=== PATIENT | male | born 1965 | race Caucasian/White ===

== ENCOUNTER 2022-01-27 14:36 | Emergency (ER) | payer OTHER, SELFPAY ==
[2022-01-27 14:37] VITALS: BP 148/91; PULSE 77; TEMP 36.7; O2SAT 96; BMI 30.2
--- NOTE | 2022-01-27 14:44 | ECG_ITS ---
[facility] Test Date: 2022-01-27 Pat Name: José Miguel Nguyen Department: Room: Gender: Male Specification Manager: : 1965 Requested By: Dany Portillo Order Number: [id number] Santiago MD: Paola Parsons M.D. Measurements Intervals [place] Rate: 75 P: DC: QRS: -2 QRSD: 95 T: 48 QT: 363 QTc: 406 Interpretive Statements Possible sinus rhythm with a rate of 75 bpm. Heavy baseline artifact. Some nonspecific T changes. Defective EKG Need to repeat Electronically Signed On 01-27-2022 23:13:20 [employer] SALESPERSON by Paola Parsons M.D. [id number]
[2022-01-27 15:11] LABS: Basophils % 0.7 %; Eosinophils # 0.1 10^3/uL (0.0-0.8); Eosinophils % 2.2 %; Hematocrit 43.1 % (42.0-52.0); Hemoglobin 14.3 g/dL (11.7-16.6); Lymphocytes # 0.5 10^3/uL (0.8-4.8); Lymphocytes % 9.7 %; Mean Corpuscular HGB Conc 33.2 g/dL (30.0-36.0); Mean Corpuscular Hemoglobin 26.7 pg (28.0-34.0); Mean Corpuscular Volume 80.6 fl (80-94); Mean Platelet Volume 10.7 fL (7.4-10.4); Monocytes # 0.6 10^3/uL (0.2-0.9); Monocytes % 10.3 %; Neutrophils # 4.11 10^3/uL (1.8-7.7); Neutrophils % 76.7 %; Nucleated Red Blood Cells % 0 %; Platelet Count 62 10^3/cmm (130-400); Red Blood Count 5.35 10^6/uL (4.1-5.3); Red Cell Distribution Width 18.9 % (12.1-15.1); White Blood Count 5.4 10^3/uL (4.0-10.0)
--- NOTE | 2022-01-27 15:18 | ED_ITS ---
HPI - Nausea/Vomiting/Diarrhea General: Chief complaint: Nausea/Vomiting/Diarrhea Stated complaint: N/V X 5 DAYS Time Seen by Provider: 01/27/22 14:44 Source: patient Mode of arrival: EMS Limitations: no limitations History of Present Illness: 48-year-old male who presents emergency room highly intoxicated. He states he has been having nausea vomiting for the last 5 days been drinking as much as I can . Patient states he has a history of bipolar disorder and anxiety. He repeatedly denies any suicidal homicidal ideation to me. He denies hematochezia melena hematemesis or coffee-ground emesis. He has noticed some streaks of blood in the vomit as well as what he describes as like black tar. He is also noticed dark stool. He is not had any hematochezia. MD elicited complaint: nausea and vomiting Pertinent past history: other (Chronic alcohol abuse) Onset (ago): day(s) (5) Description of vomiting: watery and bilious Associated nausea: Yes Location of pain: Epigastric Radiation: epigastric Pain consistency: intermittent Severity: mild Quality: cramping Exacerbating factors: none Relieving factors: none Context: alcohol abuse Associated symtoms: Reports anxiety, fatigue, anorexia, malaise, nausea, syncope and weakness; Denies altered mental status, bloating, change in vision, cough, diaphoresis, decreased urine output, dizziness, dysuria, epistaxis, fecal incontinence, fevers/chills, headache(s), myalgias, numbness, palpitations, rash, short of breath, tenesmus or tinnitus Review of Systems Const: Reports: fatigue and malaise; Denies: diaphoresis Eyes: Denies: change in vision ENMT: Denies: tinnitus or epistaxis Card: Reports: syncope; Denies: palpitations Resp: Denies: dyspnea, productive cough or non-productive cough GI: Reports: abdominal pain, nausea, vomiting and coffee ground emesis (??); Denies: bloating or fecal incontinence : Denies: flank pain, difficulty urinating or dysuria Skin/Breast: Denies: rash or pruritus Neuro: Denies: headache(s) or dizziness Psych: Reports: anxiety PFSH ED PFSH: Medical History (Updated 02/01/22 @ 12:43 by Dany Tolentino DO) Alcohol abuse Anxiety Depression Social History (Updated 02/01/22 @ 12:43 by Dany Tolentino DO) Smoking and tobacco status: current every day smoker Alcohol intake: current Alcohol intake frequency: 3 or more drinks per day Alcohol type: hard liquor Alcohol use comment: Up to 1/5 of hard liquor daily Physical Exam Const: EXAM LIMITATIONS: no altered mental status GENERAL APPEARANCE: cooperative and comfortable ORIENTATION/CONSCIOUSNESS: Yes awake, Yes oriented to person, Yes oriented to place and Yes oriented to time HENMT: COMMON NORMALS: normocephalic, atraumatic and hearing grossly normal bilaterally HEAD & SCALP: normocephalic and atraumatic Neck/C-Spine: COMMON NORMALS: full ROM, no lymphadenopathy, supple and no JVD Resp: COMMON NORMALS: normal respiratory effort, No retractions, No use of accessory muscles and clear to auscultation bilaterally AUSCULTATION: clear to auscultation bilaterally Cardio: COMMON NORMALS: no JVD, regular rate, regular rhythm and No murmurs present (Cardio) RATE: regular rate RHYTHM: regular rhythm GI: COMMON NORMALS: Soft to palpation and No hepatosplenomegaly present AUSCULTATION: Yes normoactive bowel sounds PALPATION: Yes Soft to palpation, No Tenderness to palpation present (GI), No Guarding due to palpation present (GI) and Yes No hepatosplenomegaly present Extremity: COMMON NORMALS: normal to inspection, capillary refill normal, no clubbing, cyanosis or edema, no calf tenderness and no pedal edema Neuro: SENSORIUM/ORIENTATION: Yes oriented to person, Yes oriented to place and Yes oriented to time Skin: COMMON NORMALS: no rashes or lesions noted GENERAL SKIN EXAM: no rashes or lesions noted Course Vital Signs: Vital signs: Vital Signs Temperature 98.0 F 01/27/22 14:37 Pulse Rate 77 01/27/22 14:37 Blood Pressure 148/91 01/27/22 14:37 Pulse Oximetry 96 01/27/22 14:37 MDM - Nausea/Vomiting/Diarrhea Medical Decision Making Labs imaging reviewed patient refuses rectal exam. Hemoglobin and BUN are normal no sign of active bleeding. Patient is significantly intoxicated. Recommend abstinence from alcohol start pantoprazole daily. Return if has problems. Medical Records I reviewed the patient's medical records. Lab Data I reviewed the patient's lab results. : 01/27/22 15:00 01/27/22 15:00 Radiology Impressions Abdomen/Pelvis CT 01/27/22 15:52 IMPRESSION: 1. Diffuse low-attenuation throughout the liver from hepatic steatosis. 2. Cholelithiasis without acute cholecystitis. No biliary duct dilatation. 3. No free fluid or adenopathy. 4. Moderate circumferential distal esophageal wall thickening. Laboratory Results WBC 5.4 10^3/uL (4.0-10.0) 01/27/22 15:00 RBC 5.35 10^6/uL (4.1-5.3) H 01/27/22 15:00 Hgb 14.3 g/dL (11.7-16.6) 01/27/22 15:00 Hct 43.1 % (42.0-52.0) 01/27/22 15:00 MCV 80.6 fl (80-94) 01/27/22 15:00 MCH 26.7 pg (28.0-34.0) L 01/27/22 15:00 MCHC 33.2 g/dL (30.0-36.0) 01/27/22 15:00 RDW 18.9 % (12.1-15.1) H 01/27/22 15:00 Plt Count 62 10^3/cmm (130-400) L 01/27/22 15:00 MPV 10.7 fL (7.4-10.4) H 01/27/22 15:00 Neut % (Auto) 76.7 % 01/27/22 15:00 Lymph % (Auto) 9.7 % 01/27/22 15:00 [place] % (Auto) 10.3 % 01/27/22 15:00 Eos % (Auto) 2.2 % 01/27/22 15:00 Baso % (Auto) 0.7 % 01/27/22 15:00 Neut # (Auto) 4.11 10^3/uL (1.8-7.7) 01/27/22 15:00 Lymph # (Auto) 0.5 10^3/uL (0.8-4.8) L 01/27/22 15:00 [place] # (Auto) 0.6 10^3/uL (0.2-0.9) 01/27/22 15:00 Eos # (Auto) 0.1 10^3/uL (0.0-0.8) 01/27/22 15:00 Baso # (Auto) 0.0 10^3/uL (0.0-0.1) 01/27/22 15:00 Nucleated RBC % (auto) 0 % 01/27/22 15:00 Nucleated RBCs # 0.0 /100WBC 01/27/22 15:00 PT 13.20 SECONDS (12.1-14.9) 01/27/22 15:00 INR 0.97 (0.8-1.2) 01/27/22 15:00 APTT 29.2 SECONDS (23.9-36.7) 01/27/22 15:00 Sodium 135 mmol/L (136-145) L 01/27/22 15:00 Potassium 3.7 mmol/L (3.5-5.1) 01/27/22 15:00 Chloride 94 mmol/L (98-107) L 01/27/22 15:00 Carbon Dioxide 20 mmol/L (22-29) L 01/27/22 15:00 Anion Gap 24.7 (5-19) H 01/27/22 15:00 BUN 7 mg/dL (6-20) 01/27/22 15:00 Creatinine 0.6 mg/dL (0.7-1.2) L 01/27/22 15:00 GFR Calculation 138.4 mL/min (90-130) H 01/27/22 15:00 Glucose 128 mg/dL (65-115) H 01/27/22 15:00 Calculated Osmolality 280 mOsm/kg (285-295) L 01/27/22 15:00 Calcium 8.7 mg/dL (8.5-10.5) 01/27/22 15:00 Total Bilirubin 0.9 mg/dL (0.15-1.2) 01/27/22 15:00 AST 70 U/L (0-40) H 01/27/22 15:00 ALT 53 U/L (0-41) H 01/27/22 15:00 Alkaline Phosphatase 88 IU/L (40-130) 01/27/22 15:00 Creatine Kinase 146 U/L (39-308) 01/27/22 15:00 Troponin T Baseline 14 ng/L (0-15) 01/27/22 15:00 Troponin T 120 Minute 15.35 ng/L (0-15) H 01/27/22 17:15 Delta Troponin T 1.35 ABS# (0-10) 01/27/22 17:15 Total Protein 6.9 g/dL (6.6-8.7) 01/27/22 15:00 Albumin 4.4 g/dL (3.5-5.2) 01/27/22 15:00 Globulin 2.5 g/dL (1.3-4.6) 01/27/22 15:00 Lipase 100 U/L (13-60) H 01/27/22 15:00 Urine Color Yellow (Yellow) 01/27/22 17:20 Urine Appearance Clear (CLEAR) 01/27/22 17:20 Urine pH 7 (5-7) 01/27/22 17:20 Ur Specific [place] 1.010 (1.005-1.030) 01/27/22 17:20 Urine Protein Neg (Negative) 01/27/22 17:20 Urine Glucose (UA) Norm (Normal) 01/27/22 17:20 Urine Ketones Negative (Negative) 01/27/22 17:20 Urine Blood Neg (Negative) 01/27/22 17:20 Urine Nitrate Negative (Negative) 01/27/22 17:20 Urine Bilirubin Neg (Negative) 01/27/22 17:20 Urine Urobilinogen Norm mg/dL (Negative) 01/27/22 17:20 Ur Leukocyte Esterase Negative (Negative) 01/27/22 17:20 Salicylates < 0.3 mg/dL (3-10) L 01/27/22 15:00 Urine Opiates Screen Negative ng/mL (Negative) 01/27/22 17:20 Acetaminophen < 5.0 ug/mL (10-30) L 01/27/22 15:00 Ur Barbiturates Screen Negative ng/mL (Negative) 01/27/22 17:20 Ur Phencyclidine Scrn Negative ng/mL (Negative) 01/27/22 17:20 Ur Amphetamines Screen Negative ng/mL (Negative) 01/27/22 17:20 U Benzodiazepines Scrn Negative ng/mL (Negative) 01/27/22 17:20 Urine Cocaine Screen Negative ng/mL (Negative) 01/27/22 17:20 U Marijuana (THC) Screen Negative ng/mL (Negative) 01/27/22 17:20 Ethyl Alcohol 291 mg/dL (0-10) H 01/27/22 15:00 Discharge Plan Discharge Clinical Impression: Chest pain due to GERD, Alcoholic gastritis, Alcohol abuse Prescriptions: New Protonix 40 mg tablet,delayed release (DR/EC) 40 mg PO DAILY 56 Days 0RF No Action Tylenol 325 mg Tablet 325 mg PO QID PRN (Reason: Pain) 0RF Paxil 10 mg Tablet 10 mg PO DAILY 0RF venlafaxine 75 mg Tablet 75 mg PO DAILY 0RF ibuprofen 200 mg Capsule 200 mg PO Q6H PRN (Reason: Pain) 0RF hydroxyzine HCl 25 mg tablet 25 mg PO Q6H PRN (Reason: Anxiety) 0RF Discharge Orders: Discharge ED (Routine); Ordered 01/27/22 Ordered By: Dany Tolentino Patient Instructions: Alcohol Intoxication (ED), Abuse of Alcohol (ED), Opioid Safety Activity Restrictions/Additional Instructions: Abstain from alcohol. Start Protonix. Case management will contact you to make arrangements for an EGD. Coding Level of Care Code ED Graffiti Cleaner for Ana Rosa Sandoval
[2022-01-27] MEDS: lactated ringers 1,000 ML 999 ML IV ×2 (15:25→16:22)
[2022-01-27] MEDS: ondansetron 2 mg/ML SDV 2 mL 4 MG IVP (15:25)
[2022-01-27 15:29] LABS: Alanine Aminotransferase 53 U/L (0-41); Albumin Level 4.4 g/dL (3.5-5.2); Alcohol Level 291 mg/dL (0-10); Alkaline Phosphatase 88 IU/L (40-130); Blood Urea Nitrogen 7 mg/dL (6-20); Calcium 8.7 mg/dL (8.5-10.5); Carbon Dioxide 20 mmol/L (22-29); Chloride 94 mmol/L (98-107); Creatine Phosphokinase 146 U/L (39-308); Globulin 2.5 g/dL (1.3-4.6); Glomerular Filtration Rate 138.4 mL/min (90-130); Glucose 128 mg/dL (65-115); Lipase 100 U/L (13-60); Osmolality Calculated 280 mOsm/kg (285-295); Sodium 135 mmol/L (136-145); Total Bilirubin 0.9 mg/dL (0.15-1.2); Total Protein 6.9 g/dL (6.6-8.7)
[2022-01-27 15:31] LABS: Acetaminophen < 5.0 ug/mL (10-30); Anion Gap 24.7 (5-19); Aspartate Amino Transferase 70 U/L (0-40); Creatinine Clr Calc Pharmacy 151.1199; Potassium 3.7 mmol/L (3.5-5.1); Salicylate < 0.3 mg/dL (3-10)
[2022-01-27 15:37] LABS: INR 0.97 (0.8-1.2); Partial Thromboplastin Time 29.2 SECONDS (23.9-36.7)
[2022-01-27] MEDS: promethazine 25 mg/mL SDV 1 mL IM (15:50)
--- NOTE | 2022-01-27 15:52 | CT_ITS ---
WS: [id number] CT ABDOMEN AND PELVIS WITH CONTRAST HISTORY: Abdominal pain with nausea and vomiting for 5 days. TECHNIQUE: Imaging performed of the abdomen and pelvis with IV contrast. Single phase imaging of the abdomen. Coronal and sagittal reformats are submitted. All CT scans at [facility] use at [address] one of these dose optimization techniques: automated exposure control; mA and/or kV adjustment per patient size (includes targeted exams where dose is matched to clinical indication); or iterative re construction. IV CONTRAST: Omnipaque 350; 95 mL IV. Oral contrast: No DLP: 1740.12 mGy.cm COMPARISON: None available. Lower thorax: Lung bases are clear. Mildly enlarged heart. No effusion. Moderate diffuse esophageal w all thickening distally. Small hiatal hernia. Liver/biliary system: Liver is normal size but there is marked low attenuation from hepatocellular di sease. No mass. Portal vein is patent. Gallbladder: Normally distended gallbladder. There is a stone present within the lumen. No pericholec ystic fluid. Pancreas: Normal size pancreas and pancreatic duct. No adjacent inflammation. Spleen: Normal size spleen. No mass or infarct. Adrenal glands: Normal. Right kidney: Mild perinephric stranding. No obstruction or mass. Left kidney: Mild perinephric stranding. 12 mm cyst from the upper pole. No solid mass. No obstructio n. Aorta: Mild atherosclerosis with no aneurysm. Lymphadenopathy: None. Free fluid: None. GI tract: Normal appendix. Stomach is well distended with fluid. No small bowel obstruction. No colon obstruction. There are a few diverticula. Abdominal wall: Unremarkable abdominal wall. No hernia. Pelvis: No free fluid or adenopathy within the pelvis. Well-distended urinary bladder. Bones: Unremarkable. CT/CT abdomen pelvis w con* [id number] IMPRESSION: 1. Diffuse low-attenuation throughout the liver from hepatic steatosis. 2. Cholelithiasis without acute cholecystitis. No biliary duct dilatation. 3. No free fluid or adenopathy. 4. Moderate circumferential distal esophageal wall thickening.
[2022-01-27] MEDS: iohexol 300 mg/mL 100 mL Btl IV (16:05)
[2022-01-27] MEDS: diphenhydrAMINE 50 mg/mL SDV 1mL IM (16:22)
--- NOTE | 2022-01-27 17:11 | ECG_ITS ---
[facility] Test Date: 2022-01-27 Pat Name: José Miguel Nguyen Department: Room: Gender: Male Diver Pumper: : 1965 Requested By: Dany Portillo Order Number: [id number] Santiago MD: Paola Parsons M.D. Measurements Intervals [place] Rate: 89 P: 39 NC: 156 QRS: 12 QRSD: 97 T: 53 QT: 357 QTc: 435 Interpretive Statements SINUS RHYTHM Nonspecific T wave change Compared to ECG 01/27/2022 15:39:10 Because of the differences in technical quality, comparison is difficult Electronically Signed On 01-27-2022 23:16:02 WELDER TACK by Paola Parsons M.D. [email or web address]
[2022-01-27] MEDS: lidocaine 2% viscous 15 ML, aluminum-mag hydrox-simethicon 30 ML, sucralfate oral liq 1 GM PO (17:23)
[2022-01-27 17:37] LABS: Troponin(5th) Baseline 14 ng/L (0-15)
[2022-01-27 17:43] LABS: Add Urine Microscopic? NO; Charge for UA Resulting for Rev
[2022-01-27 17:48] LABS: Troponin 5 2HR 15.35 ng/L (0-15); Troponin 5 2HR Delta 1.35 ABS# (0-10)
[2022-01-27 17:55] LABS: Bilirubin Urine Neg (Negative); Blood Urine Neg (Negative); Glucose Urine UA Norm (Normal); Ketones Urine Negative (Negative); Leukocyte Esterase Urine Negative (Negative); Nitrate Urine Negative (Negative); Protein Urine Neg (Negative); Urine Appearance Clear (CLEAR); Urine Color Yellow (Yellow); Urobilinogen Urine Norm (Negative); pH Urine 7 (5-7)
[2022-01-27 18:04] LABS: Amphetamines Screen Urine Negative (Negative); Barbiturates Screen Urine Negative (Negative); Benzodiazepines Screen Urine Negative (Negative); Cocaine Screen Urine Negative (Negative); Opiate Screen Urine Negative (Negative); PCP Screen Urine Negative (Negative); THC Screen Urine Negative (Negative)
== END 2022-01-27 18:18 | disposition home or self-care (01) ==
PROVIDERS: Emergency Provider Family Medicine
DX: K29.20 Alcoholic gastritis without bleeding (principal); F10.10 Alcohol abuse, uncomplicated; K21.9 Gastro-esophageal reflux disease without esophagitis; F17.210 Nicotine dependence, cigarettes, uncomplicated
CPT/HCPCS: 74177; 80053; 80306; 80307; 81003; 82550; 83690; 84484; 85025; 85610; 85730; 93005; 96361; 96372; 96374; 96375; 99284; J1200; J2405; J2550; J2930; Q9967